=== PATIENT | female | born 1975 | race Hispanic/Latino ===

== ENCOUNTER 2017-05-07 19:45 | Emergency (ER) | payer MEDICAID ==
[2017-05-07 19:45] VITALS: BMI 35.6
[2017-05-07] MEDS ORDERED: Albuterol-Ipratrop 3 mg / 0.5 (3 ml) UD ONE (21:03)
[2017-05-07] MEDS ORDERED: Albuterol-Ipratrop 3 mg / 0.5 (3 ml) UD IH STA (21:08)
[2017-05-07] MEDS ORDERED: Promethazine/Cod 6.25mg-10mg/5ml Syr UD PO STA (21:08)
--- NOTE | 2017-05-07 21:29 | C.PDOC ---
History Of Present Illness 42 yo female w/PMHs of COPD come in for evaluation of cold sx for past 4 days associated with subjective fever, nasal congestion and cough. Pt reports, cough became productive with clear sputum, Since yesterday, developed chest tightness on cough, wheezing. use inh treatment at home without improvement. Otherwise, pt denies high fever, chills, headache, neck apin, drooling, dysphagia, dyspnea , SOB, palpitation, diaphoresis, abd. pain, N/V/D, UTI sx. Ambulate to ED for evaluation, not in any apparent distress. Occasional dry cough noted. Time Seen by Provider: 05/07/17 20:44 Chief Complaint (Nursing): Cough, Cold, Congestion Past Medical History Vital Signs: Last Vital Signs Temp 98.3 F 05/07/17 20:26 Pulse 92 H 05/07/17 20:26 Resp 18 05/07/17 20:26 BP 127/85 05/07/17 20:26 Pulse Ox 97 05/07/17 21:31 - Medical History PMH: Anemia (iron deficiency), Arthritis, Asthma, Bronchitis, Depression, Gall Bladder Disease, Hypercholesterolemia, Pneumonia (5 years ago) Denies: Chronic Kidney Disease Surgical History: Endoscopy Family History: States: Unknown Family Hx - Social History Hx Tobacco Use: Yes (1 ppd) Hx Alcohol Use: No Hx Substance Use: No - Immunization History Hx Tetanus Toxoid Vaccination: No Hx Influenza Vaccination: No Hx Pneumococcal Vaccination: No Physical Exam - Physical Exam Appears: Well, Non-toxic, No Acute Distress, Other (occasional dry cough noted) Skin: Normal Color, Warm, Dry Head: Normacephalic Eye(s): bilateral: PERRL Ear(s): Bilateral: Normal Nose: No Flaring, Discharge (scant clear rhinorrhea) Oral Mucosa: Moist, No Drooling Tongue: Normal Appearing Lips: Normal Appearing Throat: Erythema (mild b/L), No Drooling Neck: Trachea Midline, Supple Cardiovascular: Rhythm Regular, No Murmur, No JVD Respiratory: No Decreased Breath Sounds, No Accessory Muscle Use, No Rales, No Rhonchi, No Stridor, Wheezing (scattered bibasilar wheezing, exp) Gastrointestinal/Abdominal: Soft, No Tenderness, No Distention, No Guarding Back: No CVA Tenderness Extremity: Normal ROM, No Deformity, No Swelling Neurological/Psych: Oriented x3, Normal Speech ED Course And Treatment O2 Sat by Pulse Oximetry: 97 Pulse Ox Interpretation: Normal Progress Note: On re-evaluation, pt is afebrile, hemodynamicaly stable. Pt reports, mod improvement in sx. Non-toxic. Tolerate PO well in ED. PulsEOx 97 % RA. Neck: Supple, (-) meningeal sign, (-) JVD. ENT: no acute findings. Lungs: CTA B/L, BS equal B/L. CVS: (+)S1S2, reg. Abd: benign. Neurologicaly intact. Pt has clinical findings c/w acute bronchitis. pt advised. ref. to f/ u with PMD in 2-3 days for re-eval. return if any worsening or new changes. Disposition Counseled Patient/Family Regarding: Studies Performed, Diagnosis, Need For Followup, Rx Given - Disposition Referrals: Omi Peralta MD [Primary Care Provider] - Disposition: HOME/ ROUTINE Disposition Time: 22:00 Condition: STABLE Additional Instructions: Encourage fluids Take medication as prescribed Follow up with PMD in 2-3 days for re-evaluation. return to ED if any worsening or new changes. Prescriptions: Albuterol HFA [Ventolin HFA 90 mcg/actuation (8 g)] 1 puff IH Q6 #1 inhaler Azithromycin [Zithromax] 250 mg PO DAILY #4 tab Prednisone [Deltasone] 40 mg PO DAILY #8 tablet Promethazine/Codeine [Phenergan/Codeine Oral Syrup] 10 ml PO TID #90 ml Instructions: Acute Bronchitis (ED) Forms: [employer] (Mongolian) - Clinical Impression Clinical Impression: Bronchitis
[2017-05-07] MEDS ORDERED: Promethazine/Cod 6.25mg-10mg/5ml Syr UD ONE (21:43)
[2017-05-07 22:42] VITALS: BP 100/63; PULSE 90; RESP 20; TEMP 98.5; O2SAT 100
--- NOTE | 2017-05-08 09:03 | RAD ---
Chest x-ray two views History: Cough. Comparison: 11/03/2015 Findings: No focal infiltrate or effusion. Heart size within normal limits. Impression: No focal infiltrate or effusion.
== END 2017-05-07 23:00 | disposition home or self-care (01) ==
LOC: SUPCPDRO 19:45 → C.ER 19:45
DX: J40 Bronchitis, not specified as acute or chronic (principal); E78.00 Pure hypercholesterolemia, unspecified; Z87.891 Personal history of nicotine dependence